=== PATIENT | male | born 1975 ===

== ENCOUNTER 2024-08-05 06:19 | Day surgery (SDC) | payer OTHER, SELFPAY | END 2024-08-05 10:29 | disposition home or self-care (01) | LOC: GI 06:19 | PROVIDERS: ATTENDING PHYSICIAN Internal Medicine Gastroenterology | DX: Z12.11 Encounter for screening for malignant neoplasm of colon (principal); K64.8 Other hemorrhoids; K63.89 Other specified diseases of intestine; K64.4 Residual hemorrhoidal skin tags; K62.89 Other specified diseases of anus and rectum; R12 Heartburn; K44.9 Diaphragmatic hernia without obstruction or gangrene; K21.00 Gastro-esophageal reflux disease with esophagitis, without bleeding; K51.20 Ulcerative (chronic) proctitis without complications; D12.4 Benign neoplasm of descending colon; K22.10 Ulcer of esophagus without bleeding; Z98.0 Intestinal bypass and anastomosis status | CPT/HCPCS: 45385; 45380; 43239; 88305; 88312 ==

== ENCOUNTER 2025-02-15 17:24 | Observation (INO) | payer OTHER, SELFPAY ==
[2025-02-15] VITALS (7 sets, daily range): BP systolic 114–136; BP diastolic 76–93; BMI 28.4; BMI 28.1
--- NOTE | 2025-02-15 13:00 | EDRN ---
Scarlet ROWE in room w/ pt.
[2025-02-15 13:21] LABS: Hematocrit 46.9 % (39.0-52.0); Hemoglobin 15.8 g/dL (13.0-18.0); Mean Corp Hgb Conc. 33.7 g/dL (33.0-37.0); Mean Corpuscular Volume 84.4 fL (80.0-94.0); Nucleated Red Blood Cells % 0 % (-); Platelet Count 230 10^3/uL (130-400); Red Cell Dist. Width 12.3 % (11.5-14.5)
--- NOTE | 2025-02-15 13:22 | ED.GENMED ---
History of Present Illness
General
Chief Complaint: Abdominal Pain
Source: patient
Exam Limitations: none
Time Seen by Provider: 02/15/25 12:57
History of Present Illness
History of Present Illness:
49yoM with history of esophagitis, prior cholecystectomy, and prior ileocecectomy presenting for evaluation of abdominal pain. Symptoms began yesterday morning when he woke up from sleep. He describes a pressure type of pain primarily in the
epigastric region that intermittently becomes sharp. He also feels very bloated and feels like he is . He was nauseous last night which has resolved. No vomiting. Last bowel movement was yesterday which was small. He tried to take
Pepcid and Gas-X without any relief. 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 Patient had similar symptoms about 3 weeks ago which lasted 48 hours before resolving. He denies any chest pain, shortness
of breath, dysuria, fevers. Patient had an EGD in July of this year which showed esophagitis and a small hiatal hernia. He is prescribed pantoprazole twice daily but he does not take this regularly.
Phy Exam
General Physical Exam
General Presentation: well appearing and no apparent distress
General Skin: warm and dry
General Habitus: normal
General Mental: alert
ENT Exam
ENT Exam: normocephalic
Pulmonary Exam
Pulmonary Exam: no respiratory distress
Gastrointestinal Exam
Gastrointestinal Exam: soft and other (Abdomen moderately distended. Hyperactive bowel sounds. Generalized abdominal tenderness noted without rebound or guarding.)
Neurological Exam
Neurological Exam: alert
[place] Coma Scale
Eye Opening: Spontaneous
Verbal Response: Oriented
Motor Response: Obeys Commands
GCS Total Score: 15
Skin Exam
Skin Exam: normal color and warm/dry
Psychiatric Exam
Psychiatric Exam: normal mood/affect
Course
Orders/Labs/Results
Orders:
Orders
02/15/25 13:01
IV Insert/Care/Rem.- Treatment PRN
02/15/25 13:08
CT Abd/pelvis W Iv Cont Urgent
Comment:
Reason For Exam: generalized abd pain
02/15/25 13:15
Complete Blood Count/With Diff Urgent
02/15/25 13:16
Comprehensive Metabolic Panel Urgent
Lipase Urgent
02/15/25 14:55
HYDROmorphone [Dilaudid] 0.5 mg IV NOW STA
02/15/25 15:33
0.9% Sodium Chloride 1000 ml [Nss] 1,000 ml IV BOLUS
Ondansetron Injectable [Zofran] 4 mg .ROUTE .STK-MED ONE
Ondansetron Injectable [Zofran] 4 mg IV NOW STA
02/15/25 15:56
HYDROmorphone [Dilaudid] 1 mg IV NOW STA
02/15/25 16:19
Lactate Level [Lactic Acid] Urgent
02/15/25 16:58
Piperacillin/Tazo 3.375 Gram [Zosyn] 3.375 gram in 50 ml IV NOW
02/15/25 17:05
Admit/Transfer Patient As Directed
Co-Sign Provider:
Level of Care: Observation services
Assign to:: Medical/Surgical
Physician / Group: chayo coleman
Diagnosis: abdominal pain
PRN Pain Medication Management As Directed
May give lesser potent ordered pain med per pt: Yes
preference::
Protocol:: Medication orders for pain may be administered in a
manner that supports deferring to patient preference
when the pt is:
- Requesting an ordered lesser potent pain medication.
Least to most potent pain medications are defined
as: acetaminophen < NSAID < tramadol < opioids
(morphine, oxycodone, hydromorphone).
- Requesting a lesser dose of the same medication IF
ORDERED.
- Requesting a less intrusive route of administration
if both routes are prescribed by the provider (PO <
IV).
02/15/25 17:06
Code Status As Directed
Resuscitation Status: Full Code
02/15/25 17:09
Pantoprazole [Protonix IV] 40 mg IV NOW STA
Abnormal Lab Results
02/15/25
13:16
Carbon Dioxide 32 H mmol/L
(22-30)
02/15/25 13:15
02/15/25 13:16
Vital Signs
Initial and Last Documented VS:
Initial Vital Signs
Temp Pulse Resp BP Pulse Ox
97.7 F 76 16 136/93 99
02/15/25 12:46 02/15/25 12:46 02/15/25 12:46 02/15/25 12:46 02/15/25 12:46
Last Documented Vital Signs
Temp Pulse Resp BP Pulse Ox
97.7 F 63 16 120/83 96
02/15/25 12:46 02/15/25 16:00 02/15/25 16:00 02/15/25 15:00 02/15/25 16:00
MDM/Problems Addressed
Differential Diagnosis Includes:
49yoM here with abd pain and bloating since yesterday AM. VSS. Patient nontoxic-appearing. Abdomen distended without signs of peritonitis. Differential diagnosis includes but is not limited to: Constipation, small bowel obstruction,
pancreatitis, gastritis, PUD
Initial ED plan: Check abdominal labs and CT abdomen.
*Pulse Oximetry
SaO2: 99
Oxygen Mode of Delivery: Room air
Patient hypoxic: no
*Critical Care Note
Total Time (30-74mins, 75-104mins- exclusive of procedures): Not Applicable
Update Note
Update Note:
Labs unremarkable including normal white count, renal function, LFTs. CT shows abnormal small bowel of uncertain etiology. Possible considerations include small bowel obstruction, infection, inflammation, or ischemia. Clinical correlation
recommended. Discussed case with general surgery who reviewed CT. No evidence of bowel obstruction on their review of CT and surgery suspecting enteritis. Patient reports increasing pain despite receiving IV Dilaudid. Will admit for further
management.
ED Attending Note
-
Portions of this chart may have been created with voice recognition software.� Occasional wrong word or��sound alike� substitutions may have occurred due to the inherent limitations of voice recognition software.
Discharge Plan
Departure
Patient Disposition: Admit
Date of Disposition: 02/15/25
Time of Disposition: 16:46
Presentation/result/management discussed w/ accepting MD/DO: Hospitalist
Discharge Problem:
Abdominal pain, Abnormal CT of the abdomen
Interventions
Interventions:
*Risk Screen - Suicide Last Done: 02/15/25 12:46
*General Assessment Last Done: 02/15/25 13:15
*Neglect/Abuse Screening Last Done: 02/15/25 12:46
*ED- Fall Risk Assessment Last Done: 02/15/25 13:15
*ED COVID-19 Vaccine History Last Done: 02/15/25 13:15
*ED Influenza Vaccine History Last Done: 02/15/25 13:15
PP-Cdfqpt-Eedsiqboto Assessment Last Done: 02/15/25 13:15
[2025-02-15 13:42] LABS: ALT (SGPT) 29 U/L (0-50); AST (SGOT) 27 U/L (17-59); Albumin 4.2 g/dl (3.5-5.0); Alkaline Phosphatase 58 U/L (38-126); Blood Urea Nitrogen 18 mg/dl (9-20); Calcium 9.2 mg/dl (8.4-10.2); Carbon Dioxide 32 mmol/L (22-30); Chloride 104 mmol/L (98-107); Estimated Creatinine Clearance 66 ml/min; Glucose 85 mg/dl (70-99); Lipase 49 U/L (23-300); Potassium 4.0 mmol/L (3.5-5.1); Sodium 137 mmol/L (135-145); Total Protein 7.3 g/dl (6.3-8.2); eGFR > 60.00
[2025-02-15] MEDS: DILAUDID 0.5 MG IV (15:27)
[2025-02-15] MEDS: ZOFRAN 4 MG IV (15:37)
[2025-02-15] MEDS: NSS 1000 IV ×2 (15:38→21:00)
--- NOTE | 2025-02-15 16:31 | EDRN ---
Pt's spouse asked why giving pt dilaudid when last dose made pain worse. THis RN TT'd Sacrlet ROWE.
--- NOTE | 2025-02-15 16:47 | HPS.HSE ---
Family Physician
-
Family Physician: Nakia Nation
Chief Complaint
-
abdominal pain
History of Present Illness
49yoM with history of esophagitis, prior cholecystectomy, and prior ileocecectomy presenting for evaluation of abdominal pain which started after lunch time. patient stated abdominal distention and bloating. patient stated poor appetite. the pain is
worse at epigastric area. stated nauseous. denied vomit. he had an bowel movement yesterday. He tried to take Pepcid and Gas-X, Protonix without any relief. He denies any chest pain, shortness of breath, dysuria, fevers. denied dysuria or
hematuria.
Patient received 2 doses of Dilaudid, normal saline, Zofran, Zosyn in ER. Admitting for further manage
Medical History
Past Medical History
Past Medical History: Reports Other
Additional Past Medical History:
Ulcerative proctitis, heartburn, asthma, liver hemangiomas
Past Surgical History: Reports Other
Additional Past Surgical History:
Knee surgery, cholecystectomy, ileocecectomy
Social History
Tobacco: Non-smoker
Alcohol: Occasional
Drug: None
Personal:
Living: With Family
Family History
Family History: Not pertinent
Allergies / Home Medications
Allergies reflects when Allergies were last updated in [facility].
Home Medications with original date entered in [facility]
Allergy/Medication List:
Allergies
Allergy/AdvReac Type Severity Reaction Status Date / Time
levofloxacin (From Levaquin) Allergy Intermediate Hives Verified 02/15/25 12:46
Review of Systems
-
Constitutional: Reports No Symptoms
EENT: Reports No Symptoms
Respiratory: Reports No Symptoms
Cardiac: Reports No Symptoms
Abdomen/GI: Reports Abdominal Pain
: Reports No Symptoms
Musculoskeletal: Reports No Symptoms
Skin: Reports No Symptoms
Neurological: Reports No Symptoms
Endocrine: Reports No Symptoms
Hematologic/Lymphatic: Reports No Symptoms
Psych: Reports No Symptoms
Physical Exam
Vital Signs
Vital Signs
Temp Pulse Resp BP Pulse Ox
97.7 F 61 16 120/83 96
02/15/25 12:46 02/15/25 15:00 02/15/25 15:00 02/15/25 15:00 02/15/25 15:00
Physical Exam
General: Well Developed, Well Nourished and No Apparent Distress
HEENT: NormoCephalic, Moist mucous membranes and Atraumatic
Respiratory: Clear
Cardiac: S1/S2 and Regular Rhythm; No Murmur or Rub
GI: Soft, Non Tender, Normal Bowel Sounds and Distended; No Organomegaly
Rectal: Deferred by Provider
Musculoskeletal: No Clubbing, No Cyanosis and No Edema
Skin: No Rash
Neuro: AO x 3 and Nonfocal/grossly intact
Psych: Calm
Laboratory Results
-
02/15/25 13:15
02/15/25 13:16
Laboratory Results
Total Bilirubin 0.8 mg/dl (0.2-1.3) 02/15/25 13:16
AST 27 U/L (17-59) 02/15/25 13:16
ALT 29 U/L (0-50) 02/15/25 13:16
Alkaline Phosphatase 58 U/L (38-126) 02/15/25 13:16
Lipase 49 U/L (23-300) 02/15/25 13:16
Data Reviewed
-
CT Scan: Report Reviewed by me
Lab Data: Labs Reviewed by me
Impression/Plan
-
# Abdominal pain/distention
# History of esophagitis
- CT abdomen pelvis with impression there are surgical clips noted associated with the ascending colon; previous ileocecectomy. There is a long segment of circumferential moderate small bowel wall thickening involving mid to distal jejunum. There is
fluid within the small bowel lumen, with mild distention measuring up to 2.5 cm. There are a few scattered air-fluid levels. The more distal small bowel is normal in caliber. There is mild associated small bowel mesenteric edema. No evidence of
pneumatosis. The etiology uncertain. Possibly related to bowel obstruction. Other possible considerations include infection, inflammation, or ischemia. Clinical correlation recommended.
- IV Zosyn continued empirically
- IV PPI
-Clear liquid diet, advance as tolerated
-GI consulted
# History of asthma
# History of seasonal allergy
- Singulair continue
- On Krystle
# DVT prophylaxis
-Lovenox
# CODE STATUS
-Full code
--- NOTE | 2025-02-15 16:49 | W.PN.UPDATE ---
Update Note
Progress Note Update
This note serves as an addendum to the H&P by technical education teacher Samanta MARTIN�
HPI
49M HX esophagitis, prior cholecystectomy, and prior ileocecectomy seen at ER:
- evaluation of acute onset of abdominal pain since yesterday morning
- pressure type of pain primarily in the epigastric region that intermittently becomes sharp
- feels very bloated
- was nauseous last night which has resolved
- no vomiting
- Last BM was yesterday and just small amount
- No flatus
- tried to take Pepcid and Gas-X without any relief.
- S/P EGD in July of this year: esophagitis and a small hiatal hernia. He is prescribed pantoprazole twice daily but he does not take this regularly.
He spoke with his GI and was advised to go to the ED for evaluation.
ROS:
- denies any chest pain, shortness of breath, dysuria, fevers.
Relevant VS
Temp Pulse Resp BP Pulse Ox
97.7 F 63 16 120/83 96
02/15/25 12:46 02/15/25 16:00 02/15/25 16:00 02/15/25 15:00 02/15/25 16:00
PE
Gen: not toxic
HEENT: anicteric , dry OM
Neck: supple
Lungs: CTA
Cor: RRR S1 S2
Abdomen:�soft benign , sluggish BS
ELEMENTARY CLASSROOM TEACHER: AAO3 NF ND
MS: no edema
Psych: Nl mood and affect
Relevant Data
02/15/25 02/15/25 02/15/25
13:15 13:16 16:19
WBC 7.5
Hgb 15.8
Plt Count 230
BUN 18
Creatinine 1.2
eGFR > 60.00
Lactic Acid Pending
Total Bilirubin 0.8
AST 27
ALT 29
Alkaline Phosphatase [address] AP with IV contrast
Abnormal small bowel, as described.
Possible considerations include small bowel obstruction, infection, inflammation, or ischemia.
Clinical correlation recommended.
Incidental hepatic hemangiomas.
NO PRIOR hospitalist admission
ASSESSMENT & PLAN
Acute onset of epigastric abdominal pain with nausea
- CT AP with DDX:Infective, Inflammation and partial SBO , less likley ischemic
- HX esophagitis - partal adherence to PO PPI
- No vomiting
- Afebrile and Nl WCC
- IV PPI now and daily
- Clear diet and ADAT
- IV NS @ 80/H
- Empiric Zosyn
- PRN anti emetics
- PRN analgesia with low dose Dilaudid PRN
- GI consult
DVT Px: LMWH
Code: Full
OBS MS
--- NOTE | 2025-02-15 16:49 | EDRN ---
Pt stated when offered dilaudid 1 mg dose IV that the other dilaudid made pain worse and he declined med to me. This RN TT's Scarlet ROWE and he declined med again to her. Pain reported as 9/10 at 16:27.
--- NOTE | 2025-02-15 16:54 | EDRN ---
Elsa Dupree CRITICAL POWER TECHNICIAN in room w/ pt at this time.
[2025-02-15] MEDS: ZOSYN 50 IV ×2 (17:40→23:22)
[2025-02-15] MEDS: PROTONIX IV 40 MG IV (17:40)
--- NOTE | 2025-02-15 19:30 | PTCARENOTE ---
Pt arrived to room 418-01. Pt ambulated from stretcher to bed. Pt AAOx3, VSS. Pt oriented to room, call ruelas placed within reach. at bedside.
[2025-02-15] MEDS: SINGULAIR 10 MG PO (21:02)
[2025-02-16] MEDS: ZOSYN 50 IV (05:00)
[2025-02-16] MEDS: NSS 1000 IV (05:00)
[2025-02-16] MEDS: PROTONIX IV 40 MG IV (07:27)
[2025-02-16] MEDS: CLARITIN 10 MG PO (07:27)
[2025-02-16] MEDS: NSS (PRESERVATIVE FREE) 10 ML IV (07:28)
[2025-02-16 08:00] VITALS: BP 121/76
--- NOTE | 2025-02-16 08:47 | W.PN.HOSP.TC ---
Addendum entered and electronically signed by Jeronimo Swartz MD 02/16/25 11:13:
abdominal pain resolved
passing gas
had a bm
will adavance diet and then dc home if able to toelrate per GI
Original Note:
Today's Communication/Plan
-
Assessment / Plan
Assessment / Plan
NAD
Scleral Anicteric
MMM
No JVD
CTABL
RRR, S1/S2
Soft, NT, ND, BS+
Warm, Dry
AAOx3
Calm
Intractable abdominal pain
CT demonstrating mild associated small bowel mesenteric edema no evidence of pneumatosis. Possible considerations SBO, infection, inflammation or ischemia
Less likely bowel ischemia however will check lactate
Post prandial with poor appetite cannot exclude PUD/Gastritis
Pain not resolved with 2 doses of Dilaudid Zofran
No white count/Afebrile/No diarrhea/Vomiting to suspect infectious, Hold Atb
Clear liquid diet
PPI IV
GI consulted
Asthma
Continue prn mdi
Anticipated Discharge: 24 - 48 hours
Subjective/Interval History
-
Date of Service: February 16, 2025
seen and examined. no new complaints. no acute overnight events
Objective Data
-
Vital Signs:
Vital Signs
Temp Pulse Resp BP Pulse Ox
98.2 F 60 16 121/76 96
02/16/25 08:00 02/16/25 08:00 02/16/25 08:00 02/16/25 08:00 02/16/25 08:00
I&O
02/15/25 02/16/25 02/17/25
06:59 06:59 06:59
Intake Total 2385 / 2385
Balance 2385 / 2385
[2025-02-16 09:14] LABS: Hematocrit 41.3 % (39.0-52.0); Hemoglobin 14.3 g/dL (13.0-18.0); Mean Corp Hgb Conc. 34.6 g/dL (33.0-37.0); Mean Corpuscular Volume 82.9 fL (80.0-94.0); Platelet Count 211 10^3/uL (130-400); Red Cell Dist. Width 12.1 % (11.5-14.5)
--- NOTE | 2025-02-16 09:16 | PTCARENOTE ---
Pt ate clear liquid breakfast and tolerated well. After, oob to bathroom and had bowel movement.
--- NOTE | 2025-02-16 09:31 | CM ---
CM met with pt and spouse at bedside.
Pt resides with spouse. Ind prior to admission with adl's/amb. No DME. 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
Confirmed PCP is Jimmie rTan and pharmacy is [facility].
Obs letter reviewed at bedside.
Anticipated dc dispo home no skilled needs.
[2025-02-16 09:37] LABS: Blood Urea Nitrogen 13 mg/dl (9-20); Calcium 8.4 mg/dl (8.4-10.2); Carbon Dioxide 28 mmol/L (22-30); Chloride 106 mmol/L (98-107); Estimated Creatinine Clearance 66 ml/min; Glucose 141 mg/dl (70-99); Potassium 3.7 mmol/L (3.5-5.1); Sodium 136 mmol/L (135-145); eGFR > 60.00
--- NOTE | 2025-02-16 09:58 | CON.GI ---
Consultation
-
Date/Time Consultation Requested: 02/15/2025
Date/Time Consultation Performed: 02/16/2025
Requesting Provider: Yocasta Prieto
Performing Provider:
Reason for Consultation: absominal pain
Medical History
Chief Complaint / HPI
Chief Complaint: abdominal pain and distention
History of Present Illness:
This is a 49-year-old male with past medical history of reflux with esophagitis, asthma, ulcerative proctitis, liver hemangiomas, appendiceal nodule status post ileocecectomy and was noted to be benign presented to the ER last night with abdominal
pain. He had called me yesterday with acute onset of abdominal pain with bloating and distention especially in the upper abdomen and I had recommended that he come into the ER. On admission he was noted to have small bowel distention with small
bowel wall thickening especially in the jejunum and was thought to have possible partial small bowel obstruction versus enteritis from infection or ischemia. No pneumatosis was noted. He says that he had a similar episode about a month ago which
lasted for about 2 to 3 days. He also has a history of reflux and had been on pantoprazole but was able to wean off of it and takes usually Pepcid and Tums as needed. He says that he had eaten a large salad Monday night and yesterday afternoon he
started to experience abdominal pain in the periumbilical and lower abdomen with distention especially in the upper abdomen. He had nausea but no vomiting. He occasionally has constipation but mostly has regular bowel movements. He has been
passing flatus since admission and also had a bowel movement today and he feels markedly improved and no further abdominal pain. He also had been started on antibiotics in the ER. No fevers or chills. No rectal bleeding or melena. His last
endoscopy and a colonoscopy were in July and was noted to have tubular adenomas on colonoscopy, normal ileum, mild proctitis was noted. Endoscopy showed reflux esophagitis biopsies were negative for Moran's and hiatal hernia. He also has had a 17
pound weight gain over the past 2 months.
Past Medical History
Past Medical History: Other (Ulcerative proctitis, GERD with esophagitis, asthma, liver hemangiomas, appendiceal nodule- benign)
Past Surgical History: Other (Knee surgery, cholecystectomy, ileocecectomy)
Social History
Tobacco: Non-Smoker
Alcohol: Occasional
Drug: None
Personal:
Living: With Family
Employment: Other (Physical therapist)
Family History
Family History: Reviewed & Not Pertinent
Allergies / Home Medications
Allergy/AdvReac Type Severity Reaction Status Date / Time
levofloxacin (From LevGlobal Weather) Allergy Intermediate Hives Verified 02/15/25 12:46
�Medication �Instructions �Recorded
albuterol sulfate 90 mcg/actuation 1 puff inhalation Q4H PRN sob 02/15/25
aerosol inhaler
fexofenadine 180 mg tablet 180 mg PO DAILY Allergies 02/15/25
montelukast 10 mg tablet 10 mg PO DAILY Allergies 02/15/25
pantoprazole 40 mg tablet,delayed 40 mg PO BID Gastrointestinal Issue 02/15/25
release
Review of Systems
-
All other systems: A 12 pt ROS was Negative except as stated above in HPI
Vital Signs
Temp Pulse Resp BP Pulse Ox
98.2 F 60 16 121/76 96
02/16/25 08:00 02/16/25 08:00 02/16/25 08:00 02/16/25 08:00 02/16/25 08:00
Physical Exam
Exam
General: No Apparent Distress
HEENT: Normocephalic
Respiratory: Clear
Cardiac: S1/S2
GI: Soft, Non Tender, Non Distended and Normal Bowel Sounds
Musculoskeletal: No Clubbing
Skin: Warm
Neuro: Awake, Alert and Oriented
Psych: Calm
Results
WBC 4.4 10^3/uL (4.8-10.8) L 02/16/25 09:04
Hgb 14.3 g/dL (13.0-18.0) 02/16/25 09:04
Hct 41.3 % (39.0-52.0) 02/16/25 09:04
MCV 82.9 fL (80.0-94.0) 02/16/25 09:04
Plt Count 211 10^3/uL (130-400) 02/16/25 09:04
Absolute Neuts (auto) 5.0 10^3/uL (1.4-6.5) 02/15/25 13:15
Sodium 136 mmol/L (135-145) 02/16/25 09:04
Potassium 3.7 mmol/L (3.5-5.1) 02/16/25 09:04
Chloride 106 mmol/L (98-107) 02/16/25 09:04
Carbon Dioxide 28 mmol/L (22-30) 02/16/25 09:04
BUN 13 mg/dl (9-20) 02/16/25 09:04
Creatinine 1.2 mg/dL (0.7-1.3) 02/16/25 09:04
Calcium 8.4 mg/dl (8.4-10.2) 02/16/25 09:04
Total Bilirubin 0.8 mg/dl (0.2-1.3) 02/15/25 13:16
AST 27 U/L (17-59) 02/15/25 13:16
ALT 29 U/L (0-50) 02/15/25 13:16
Alkaline Phosphatase 58 U/L (38-126) 02/15/25 13:16
Lipase 49 U/L (23-300) 02/15/25 13:16
Diagnostic Image Results:
02/15/2025 CT abd/pelvis
IMPRESSION:
There are surgical clips noted associated with the ascending colon; previous ileocecectomy. There is a long segment of circumferential moderate small bowel wall thickening involving mid to distal jejunum. There is fluid within the small bowel lumen,
with mild distention measuring up to 2.5 cm. There are a few scattered air-fluid levels. The more distal small bowel is normal in caliber. There is mild associated small bowel mesenteric edema. No evidence of pneumatosis. The etiology uncertain.
Possibly related to bowel obstruction. Other possible considerations include infection, inflammation, or ischemia. Clinical correlation recommended.
Incidental hepatic hemangiomas.
Prior GI Procedures:
EGD: 08/05/2024
Impression: - LA Grade B reflux esophagitis with ulceration with
no bleeding. Biopsied.-Acute esophagitis with necroinflammatory debris and granulation tissue negative for IM or dysplasia
- Small hiatal hernia.
- Normal examined duodenum.
Colonoscopy: 08/05/2024
Impression: - Non-thrombosed external hemorrhoids found on
perianal exam.
- Patent end-to-side ileo-colonic anastomosis,
characterized by healthy appearing mucosa.
- The examined portion of the ileum was normal.
- Three 3 to 10 mm polyps in the descending colon,
removed with a cold snare. Resected and retrieved - TAs
- External and internal hemorrhoids.
- Granular and nodular mucosa in the distal rectum.
Biopsied.-Chronic proctitis with focal activity
Assessment / Plan
-
1. Acute onset of abdominal pain with abdominal distention and nausea and CT consistent with dilated small bowel with air-fluid levels most likely had partial small bowel obstruction likely exacerbated by recent excessive fiber intake. His
symptoms have now completely resolved. Doubt infectious enteritis or ischemia no pneumatosis was noted and given such rapid improvement of symptoms will start him on low residue diet he also had a bowel movement today. No diarrhea prior to
admission. will schedule him for an upper GI with small bowel follow-through as outpatient. Most likely was related to adhesions from his prior ileocecectomy. If able to tolerate diet okay for DC home later today. Told him to stay on a low
residue diet for the next couple of days and avoid excessive roughage intake. Continue magnesium daily.
2. History of reflux esophagitis and had been on PPI but was able to wean off of it and has made dietary modifications and uses Pepcid as needed, told him to take pantoprazole daily for the next 2 to 4 weeks
3. History of ulcerative proctitis but currently not having any symptoms and has not been using Rowasa or Canasa will restart if he has recurrent symptoms.
Data Reviewed
-
CT Scan: Report Reviewed by me
Old Records: Reviewed
-
-
Thank you for consultation and allowing me to participate in the patient's care. Please call the commissary production supervisor GI physician during the after hours with any questions or concerns.
--- NOTE | 2025-02-16 11:11 | PTCARENOTE ---
Pt ate 100% low residue tray. No issues. Pt says he feels great. Pt motivated for discharge.
--- NOTE | 2025-02-16 11:52 | W.DCSUMMARY ---
Discharge Summary
Discharge Data
Date of Admission: 02/15/25
Date of Discharge: 02/16/25
-
Pending Results: No
Hospital Course
49yoM with history of esophagitis, prior cholecystectomy, and prior ileocecectomy
Presented with acute onset abdominal pain associated distention nausea. CT abdomen pelvis demonstrated evidence of dilated small bowel muscles most consistent with partial small bowel obstruction along with bowel edema for which could not exclude
inflammation infection or risk. Lactic level was low therefore ruled out no white count afebrile improving and now infectious. Evaluated by gastroenterology recommended to advance diet as abdominal pain had resolved and outpatient follow-up if
able to tolerate diet.
CT abdomen pelvis with impression there are surgical clips noted associated with the ascending colon; previous ileocecectomy. There is a long segment of circumferential moderate small bowel wall thickening involving mid to distal jejunum. There is
fluid within the small bowel lumen, with mild distention measuring up to 2.5 cm. There are a few scattered air-fluid levels. The more distal small bowel is normal in caliber. There is mild associated small bowel mesenteric edema. No evidence of
pneumatosis. The etiology uncertain. Possibly related to bowel obstruction. Other possible considerations include infection, inflammation, or ischemia. Clinical correlation recommended.
Seen and examined on the day of dischagre which was 02/16. No new complaints. No acute overnight events.
Had a god sized bm and passing gas
Tolerating PO diet
NAD
Scleral Anicteric
MMM
No JVD
CTABL
RRR, S1/S2
Soft, NT, ND, BS+
Warm, Dry
AAOx3
Calm
More than 30 minutes spent in discharge including
Final examination of the patient
Summarizing hospital stay
Instructions for continuing care to all relevant caregivers
Preparation of discharge records, prescriptions, and referral forms
Total time spent (in minutes): 33mins
Discharge Plan
-
Patient Disposition: Home (Routine Discharge)
Discharge Diagnosis/Procedures: Acute onset of abdominal pain with abdominal distention and nausea and CT consistent with dilated small bowel with air-fluid levels most likely had partial small bowel obstruction likely exacerbated by recent
excessive fiber intake
Diet: Regular, Low Fat, Low Cholesterol and 2 Gram Sodium
Activity: As tolerated
Activity Restrictions/Additional Instructions:
Acute onset abdominal pain associated distention nausea. CT abdomen pelvis demonstrated evidence of dilated small bowel muscles most consistent with partial small bowel obstruction along with bowel edema for which could not exclude inflammation
infection or risk. Lactic level was low therefore ruled out no white count afebrile improving and now infectious. Evaluated by gastroenterology recommended to advance diet as abdominal pain had resolved and outpatient follow-up if able to tolerate
diet.
CT abdomen pelvis with impression there are surgical clips noted associated with the ascending colon; previous ileocecectomy. There is a long segment of circumferential moderate small bowel wall thickening involving mid to distal jejunum. There is
fluid within the small bowel lumen, with mild distention measuring up to 2.5 cm. There are a few scattered air-fluid levels. The more distal small bowel is normal in caliber. There is mild associated small bowel mesenteric edema. No evidence of
pneumatosis. The etiology uncertain. Possibly related to bowel obstruction. Other possible considerations include infection, inflammation, or ischemia. Clinical correlation recommended.
Referrals:
Nakia Nation MD [Family Provider, Gastroenterology]
Prescriptions:
Continued
fexofenadine 180 mg Tablet
180 mg PO DAILY
pantoprazole 40 mg tablet,delayed release (DR/EC)
40 mg PO BID
montelukast 10 mg tablet
10 mg PO DAILY
albuterol sulfate 90 mcg/actuation HFA aerosol inhaler
1 puff INHALATION Q4H PRN (Reason: sob)
Discharge Orders:
Discharge Patient (As Directed); Ordered 02/16/25
Ordered By: Jeronimo Swartz
Discharge Date and Time
Print Language: MALTESE
[2025-02-16 11:58] VITALS: BP 116/74
== END 2025-02-16 12:00 | disposition home or self-care (01) ==
LOC: 4 WEST ACU 17:24
PROVIDERS: Physician Assistant; ADMITTING PHYSICIAN Internal Medicine; ATTENDING PHYSICIAN Hospitalist; CONSULT PHYSICIAN Internal Medicine Gastroenterology; EMERGENCY PHYSICIAN Emergency Medicine
DX: R10.9 Unspecified abdominal pain (principal); R14.0 Abdominal distension (gaseous); R11.0 Nausea; R60.9 Edema, unspecified; R94.8 Abnormal results of function studies of other organs and systems; K63.89 Other specified diseases of intestine; K21.00 Gastro-esophageal reflux disease with esophagitis, without bleeding; K44.9 Diaphragmatic hernia without obstruction or gangrene; K64.4 Residual hemorrhoidal skin tags; D18.03 Hemangioma of intra-abdominal structures; J45.909 Unspecified asthma, uncomplicated; K51.20 Ulcerative (chronic) proctitis without complications; R00.1 Bradycardia, unspecified; Z88.1 Allergy status to other antibiotic agents; Z86.0100 Personal history of colon polyps, unspecified; Z79.899 Other long term (current) drug therapy; Z90.49 Acquired absence of other specified parts of digestive tract; K22.10 Ulcer of esophagus without bleeding
CPT/HCPCS: 74177; 80048; 80053; 83605; 83690; 85025; 85027; 93005; 96361; 96365; 96375; 96376; 99284; G0378; Q9967